=== PATIENT | female | born 1935 | race Caucasian/White ===

== ENCOUNTER → 2018-01-07 | Outpatient (CLI) | payer MEDICARE, OTHER ==
[~2018-01-07] MED LIST: ASPI81EC; ATOR10; AZIT250 PO; BUDE32NIS; CALCAVITDA; Coq-1030 MG PO; ESTR.75; ESTRTP; FISH1000 PO; FOLI1; FOLI400; HYDR1TAB94 PO; LOSA50 PO; MULVITMINF; OMEP20ER PO; PRAV20 PO; RABE20; SERT25; SERT25 PO; SERT50; TUDORZA PRESS400 MCG IH
[2018-01-07 13:58] LABS: Protein, Urine Random 18.4 mg/dL (0.0-11.9)
[2018-01-07 14:04] LABS: Bacteria Few /hpf; Red Blood Cells, Urine 0-2 /hpf (0-2); Squamous Epithelial Cells Rare /hpf (Few); White Blood Cells, Urine 0-2 /hpf (0-5)
[2018-01-07 14:05] LABS: Calcium Oxalate Crystals Mod /hpf
== END | disposition home or self-care (01) ==
LOC: LAB SHORT 11:23 → OLS 11:23
PROVIDERS: Internal Medicine
DX: R94.4 Abnormal results of kidney function studies (principal)
CPT/HCPCS: 81015; 82570; 84156

== ENCOUNTER 2018-08-20 05:43 | Inpatient (IN) | payer MEDICARE, OTHER ==
[~2018-08-20] VITALS: Ht 154.9 cm; Wt 75.5 kg
[~2018-08-20 05:43] MED LIST changes: +CENTRUM SILVER1 EAC2 PO; +CHOL10002 PO; +COQ1050 MG PO; +CYAN500 PO; +EZET10 PO; +FISH OIL + D31 EACH PO; +FISH OIL 1,0001 EAC1 PO; +Omeprazole20 M1 PO; +PERSERVISION BOTHEYES; +SERT50 PO; +TYLENOL PM PO; +Vitamin E200 UNIT PO; +WAL-ZAN 150150 MG PO
--- NOTE | 2018-08-20 06:47 | NUR ---
PT ADMITTED TO [facility]. AGREES WITH PLANNED SURGERY. LUNG SOUNDS CLEAR. NOSIN TO NARES BILATERLLY. MEDS, ALLERGIES AND HX REVIEWED.
--- NOTE | 2018-08-20 07:25 | NUR ---
PT TO BATHROOM TO VOID.
--- NOTE | 2018-08-20 11:55 | NUR ---
pt arrived to room 216 s/p l total hip pt has 3 bulky dressing cdi pt denies pain can wiggle toes but stated the hip is heavy pt denies nausea cl given will order reg diet pt daughter at bedside polar pack in place pt shaking warm blankets placed oriented to room layout
--- NOTE | 2018-08-20 15:41 | NUR ---
PT WORKING WITH PHYSICAL THERAPY AMB IN [facility]
--- NOTE | 2018-08-20 17:30 | NUR ---
PT EATING DINNER PT STATED THAT HER PAIN WAS 1-2/10
--- NOTE | 2018-08-20 18:27 | NUR ---
MEDS GIVEN SCHED PT ASSISTED TO BATHROOM TO VOID WANTS TO SIT UP IN CHAIR LONGER
[2018-08-21 04:08] LABS: BASOPHILS ABSOLUTE AUTO 0.01 K/mm3 (0.00-0.23); BASOPHILS PERCENT AUTO 0 % (0-2); EOSINOPHILS PERCENT AUTO 0 % (0-6); Hemoglobin 10.9 g/dL (11.5-16.0); IMMATURE GRAN ABSOLUTE AUTO 0.03 K/mm3 (0.00-0.10); IMMATURE GRAN PERCENT AUTO 0 % (0-1); LYMPHOCYTES ABSOLUTE AUTO 1.02 K/mm3 (0.84-5.20); LYMPHOCYTES PERCENT AUTO 8 % (21-46); MONOCYTES ABSOLUTE AUTO 1.34 K/mm3 (0.16-1.47); MONOCYTES PERCENT AUTO 11 % (4-13); Mean Corpuscular HGB 31.9 pg (26.0-34.0); Mean Corpuscular Volume 97 fL (80-100); Mean Platelet Volume 10.1 fL (9.1-12.4); NEUTROPHILS ABSOLUTE AUTO 9.92 K/mm3 (1.96-9.15); NEUTROPHILS PERCENT AUTO 81 % (41-73); Platelet Count 144 K/mm3 (150-400); RDW Coefficient Variation 11.8 % (11.7-14.2); RDW Standard Deviation 41.4 fL (35.1-46.3); Red Blood Cell Count 3.42 M/mm3 (3.80-5.20); White Blood Cell Count 12.32 K/mm3 (4.00-11.30)
[2018-08-21 04:24] LABS: Bun/Creatinine Ratio 23.4 (12.0-20.0); Calcium, Blood 8.4 mg/dL (8.5-10.1); Creatinine, Blood 1.07 mg/dL (0.40-1.00); Potassium, Blood 4.1 mmol/L (3.5-5.5)
--- NOTE | 2018-08-21 04:57 | NUR ---
SHIFT [facility] ASSUMED PT CARE AT 0045; REPORT RECEIVED FROM JERO,RN. PT A&O X4; POD#1 L ELIZABETH; DRESSINGS TO LLE CDI X3 SITES. PAIN MANGED PER EMAR. PT UP WITH FWW AND SBA. SCD'S AND GABRIELLA'S TO BLE'S. PPPX4; CALL LIGHT IN REACH; PT DEMONSTRATES USE. SIDE RAILS X3 FOR SAFETY. WCTM UNTIL REPORT TO DAY SHIFT RN.
--- NOTE | 2018-08-21 08:02 | NUR ---
pt declined breakfast stated she wants to rest stated she got up at 0300 with restless legs and was unable to fall back asleep at home she takes tylenol and lays back down pt wants to hold of on meds untill physical therapy comes or her daughter she said she might be in at 0900 pt denies pain at this time dressings cdi no bruising or swelling noted good strength
--- NOTE | 2018-08-21 08:55 | NUR ---
dr lui by to see pt dressing changed aqucel placed to hip upper and lower dressing removed and left off clean and dry pt oob in chair assisted to get dressed meds given as sched
[2018-08-21] MEDS ORDERED: HYDR1TAB94 PO (10:27)
[2018-08-21] MEDS ORDERED: ASPI325EC PO (10:28)
[2018-08-21] MEDS ORDERED: PROM25 PO (10:34)
--- NOTE | 2018-08-21 10:58 | NUR ---
discharge instructions reviewed with pt and daughter dressings given earlier no acute changes pt eval ok to discharge home no pain at this time rx filled by daughter yesterday but called in rx for bill mendez on catherine escort to car
== END 2018-08-21 11:00 | disposition home or self-care (01) | DRG 470 ==
LOC: SURS 05:43 → PRE IP 07:30 → SURS 11:56
PROVIDERS: ADMIT Orthopaedic Surgery
PROC: 8E0YXBZ Computer Assisted Procedure of Lower Extremity (ICD-10-PCS; 2018-08-20)
PROC: 0SRB04A Replacement of Left Hip Joint with Ceramic on Polyethylene Synthetic Substitute, Uncemented, Open Approach (ICD-10-PCS; principal; 2018-08-20 07:30)
DX: M16.12 Unilateral primary osteoarthritis, left hip (principal); K21.9 Gastro-esophageal reflux disease without esophagitis; N18.9 Chronic kidney disease, unspecified; J44.9 Chronic obstructive pulmonary disease, unspecified; E55.9 Vitamin D deficiency, unspecified; E78.00 Pure hypercholesterolemia, unspecified; I12.9 Hypertensive chronic kidney disease with stage 1 through stage 4 chronic kidney disease, or unspecified chronic kidney disease; F41.9 Anxiety disorder, unspecified; F32.9 Major depressive disorder, single episode, unspecified; G25.81 Restless legs syndrome; I27.20 Pulmonary hypertension, unspecified; Z88.5 Allergy status to narcotic agent; Z88.0 Allergy status to penicillin; Z88.8 Allergy status to other drugs, medicaments and biological substances; Z87.891 Personal history of nicotine dependence
CPT/HCPCS: 36415; 72170; 80048; 83735; 85025; 88300; 97110; 97116; 97162; 97530; C1713; C1776; J0171; J0735; J1100; J1885; J2795; J3370; J7120

== ENCOUNTER → 2018-09-25 | Outpatient (CLI) | payer MEDICARE, OTHER ==
[~2018-09-25] MED LIST changes: +ASPI325EC PO; +PROM25 PO
[2018-09-25 17:20] LABS: Adenovirus F 40/41 Not Detected (NOT DETECT); Astrovirus Not Detected (NOT DETECT); Campylobacter Sp Not Detected (NOT DETECT); Cryptosporidium Not Detected (NOT DETECT); Cyclospora Cayetanensis Not Detected (NOT DETECT); E. Coli O157 Not Detected (NOT DETECT); Entamoeba Histolytica Not Detected (NOT DETECT); Enteroaggregative E. coli-EAEC Not Detected (NOT DETECT); Enteropathogenic E. coli-EPEC Not Detected (NOT DETECT); Enterotoxigenic E. coli-ETEC Not Detected (NOT DETECT); Giardia Lamblia Not Detected (NOT DETECT); Norovirus GI/GII Not Detected (NOT DETECT); Plesiomonas Shigelloides Not Detected (NOT DETECT); Rotavirus A Not Detected (NOT DETECT); Salmonella Sp Not Detected (NOT DETECT); Sapovirus Not Detected (NOT DETECT); Shiga Toxin-prod E. coli-STEC Not Detected (NOT DETECT); Shigella/Enteroin E. coli-EIEC Not Detected (NOT DETECT); Vibrio Cholerae Not Detected (NOT DETECT); Vibrio Sp Not Detected (NOT DETECT); Yersinia Enterocolitica Not Detected (NOT DETECT)
== END | disposition home or self-care (01) ==
LOC: LAB EV 03:00
PROVIDERS: Family Medicine
DX: A07.8 Other specified protozoal intestinal diseases (principal)
CPT/HCPCS: 87324; 87507

== ENCOUNTER → 2019-09-21 | Outpatient (CLI) | payer MEDICARE, OTHER | END | disposition home or self-care (01) | LOC: PLD 11:44 → LAB SHORT 11:44 | DX: D22.5 Melanocytic nevi of trunk (principal) | CPT/HCPCS: 88305 ==

== ENCOUNTER → 2020-03-10 | Outpatient (CLI) | payer MEDICARE, OTHER | LOC: LAB SHORT 13:53 → LAB EV 13:53 | DX: N39.0 Urinary tract infection, site not specified (principal) | CPT/HCPCS: 87086 ==

== ENCOUNTER 2024-02-20 09:21 | Emergency (ER) | payer MEDICARE, OTHER ==
[~2024-02-20] VITALS: Ht 165.1 cm; Wt 72.6 kg
[2024-02-20] MEDS ORDERED: SERT50 PO (09:27)
[2024-02-20] MEDS ORDERED: ALBU3IS INH (09:27)
[2024-02-20] MEDS ORDERED: ACET325 PO (09:27)
[2024-02-20] MEDS ORDERED: GABA100 PO (09:28)
[2024-02-20] MEDS ORDERED: Acetaminophen 325 MG TABLET PO ONE (10:15)
[2024-02-20] MEDS ORDERED: OXYC5 PO (11:22)
[2024-02-20 13:05] VITALS: BP 146/66
== END 2024-02-20 13:25 | disposition home or self-care (01) ==
LOC: ER 09:21
DX: S72.92XA Unspecified fracture of left femur, initial encounter for closed fracture (principal); M97.02XA Periprosthetic fracture around internal prosthetic left hip joint, initial encounter; S39.012A Strain of muscle, fascia and tendon of lower back, initial encounter; W19.XXXA Unspecified fall, initial encounter; Z88.0 Allergy status to penicillin; Z88.5 Allergy status to narcotic agent; Z88.8 Allergy status to other drugs, medicaments and biological substances; Z79.899 Other long term (current) drug therapy
CPT/HCPCS: 72100; 73502; 99283-25; A9270

== ENCOUNTER 2024-02-25 09:38 | Inpatient (IN) | payer MEDICARE, OTHER ==
[~2024-02-25] VITALS: Ht 162.6 cm; Wt 63.5 kg
[~2024-02-25 09:38] MED LIST changes: +ACET325 PO; +ALBU3IS INH; +GABA100 PO; +OXYC5 PO
[2024-02-25] MEDS ORDERED: Acetaminophen 325 MG TABLET PO ONE (10:45)
[2024-02-25] MEDS ORDERED: Albuterol 2.5 MG/3 ML VIAL INH PRN (11:55)
[2024-02-25] MEDS ORDERED: OxyCODONE HCL 5 MG TAB PO PRN (11:55)
[2024-02-25] MEDS ORDERED: Acetaminophen 325 MG TABLET PO PRN (12:00)
[2024-02-25 12:26] LABS: BASOPHILS ABSOLUTE AUTO 0.03 K/mm3 (0.00-0.23); BASOPHILS PERCENT AUTO 0 % (0-2); EOSINOPHILS ABSOLUTE AUTO 0.19 K/mm3 (0.00-0.68); EOSINOPHILS PERCENT AUTO 3 % (0-6); Hematocrit 40.7 % (33.0-51.0); IMMATURE GRAN ABSOLUTE AUTO 0.02 K/mm3 (0.00-0.10); IMMATURE GRAN PERCENT AUTO 0 % (0-1); LYMPHOCYTES ABSOLUTE AUTO 1.04 K/mm3 (0.84-5.20); LYMPHOCYTES PERCENT AUTO 15 % (21-46); MONOCYTES ABSOLUTE AUTO 0.69 K/mm3 (0.16-1.47); MONOCYTES PERCENT AUTO 10 % (4-13); Mean Corpuscular HGB 32.3 pg (26.0-34.0); Mean Corpuscular HGB Conc 31.9 g/dL (31.5-36.5); Mean Corpuscular Volume 101 fL (80-100); Mean Platelet Volume 10.3 fL (9.1-12.4); NEUTROPHILS PERCENT AUTO 71 % (41-73); Platelet Count 136 K/mm3 (150-400); RDW Coefficient Variation 12.1 % (11.7-14.2); RDW Standard Deviation 45.7 fL (35.1-46.3); Red Blood Cell Count 4.02 M/mm3 (3.80-5.20); White Blood Cell Count 6.87 K/mm3 (4.00-11.30)
[2024-02-25 12:45] LABS: Albumin, Blood 3.2 g/dL (3.4-5.0); Albumin/Globulin Ratio 0.8 (0.8-1.8); Bilirubin, Total 0.6 mg/dL (0.1-1.0); Bun/Creatinine Ratio 32.3 (12.0-20.0); Calcium, Blood 9.4 mg/dL (8.5-10.1); Creatinine, Blood 0.87 mg/dL (0.40-1.00); Globulin, Blood 4.1 g/dL (2.2-4.0); Potassium, Blood 4.2 mmol/L (3.5-5.5); Total Protein, Blood 7.3 g/dL (6.4-8.2)
[2024-02-25 13:00] LABS: Source, Urine Fem Cath
[2024-02-25 13:11] LABS: Appearance, Urine Clear (Clear); Bilirubin, Urine Neg (Neg); Blood, Urine 2+ (Neg); Glucose Qualitative, Urine Neg (Neg); Ketones, Urine Neg (Neg); Leukocyte Esterase, Urine Neg (Neg); Nitrite, Urine Neg (Neg); Protein, Urine Neg (Neg); Specific Gravity, Urine 1.015 (1.003-1.022); Urobilinogen, Urine NORM (Normal)
[2024-02-25 13:31] LABS: Color, Urine Pale Yellow (P-Yellow)
[2024-02-25 13:33] VITALS: BP 168/83
[2024-02-25 13:33] LABS: Bacteria Rare /hpf; Red Blood Cells, Urine 0-2 /hpf (0-2); Squamous Epithelial Cells Rare /hpf (Few); White Blood Cells, Urine 0-2 /hpf (0-5)
[2024-02-25] MEDS ORDERED: CENTRUM SILVER1 EAC2 PO (13:45)
[2024-02-25] MEDS ORDERED: FISH OIL 1,4001 EAC2 PO (13:45)
[2024-02-25] MEDS ORDERED: B-12500 MC2 PO (13:46)
[2024-02-25] MEDS ORDERED: THERA-D2000 UNIT PO (13:46)
[2024-02-25] MEDS ORDERED: TOCO1000 PO (13:47)
[2024-02-25] MEDS ORDERED: PRESERVISION A1 EAC1 PO (13:47)
[2024-02-25] MEDS ORDERED: ALBU90OI INH (13:48)
[2024-02-25] MEDS ORDERED: GABA100 PO (13:50)
[2024-02-25] MEDS ORDERED: Gabapentin 100 MG Cap PO SCH (14:00)
--- NOTE | 2024-02-25 18:22 | NUR ---
SHIFT SUMMARY; PATIENT ARRIVED TO MED FLOOR FROM ER EARLY THIS AFTERNOON. ON ARRIVAL SHE IS ORIENTED TO PERSON AND PLACE BUT NOT TIME OR EVENT. SHE WAS ADMITTED AFTER HAVING A GLF FALL ON February AND NOT BEING ABLE TO MANAGE AT HOME. PLAN IS FOR PATIENT TO HAVE 3 DAYS STAY AND THEN TRANSFER TO SNF FOR REHAB. HER VITAL SIGNS ARE STABLE AND NO SKIN ISSUES NOTED OTHER THAN BRUISE IN VARIOIUS STAGES OF HEALING TO LEFT HIP. VITAL SIGNS ARE STABLE AND PATIENT DENIES NEEDS FOR ANY PAIN MEDICATIONS AT THIS TIIME.
[2024-02-25 19:37] VITALS: BP 137/71
[2024-02-26 03:57] VITALS: BP 182/78
--- NOTE | 2024-02-26 05:30 | NUR ---
PRINT PRODUCTION ASSOCIATE SUMMARY BP ELEVATED OTHERWISE VSS. (HX OF BP ELEVATED - SEE DOC FLOW SHEETS). ASYMPTOMATIC. ALERT TO QUESTIONS ASKED. DENIED DISCOMFORT WHEN ASKED. REMAIN S BEDREST DUE TO HIP FX. ABLE TO REPOSITION SELF IN BED WITH LITTLE ASSIST. HAS BEEN RSTING QUIETLY WITH FEW INTERRUPTIONS. PUREWICK IN USE. CONT OF BOWEL WITH BEDPAN. BED ALARM ON. NO ATTEMPTS TO GET OOB WITHOUT ASSIST. RAILS UP X 2, CALL LIGHT IN REACH AND BED IN LOW POSITION FOR SAFETY. WILL CONT TO MONITOR
[2024-02-26 07:39] VITALS: BP 161/90
[2024-02-26] MEDS ORDERED: Enoxaparin 40 MG/0.4 ML SYR SC SCH (09:00)
[2024-02-26] MEDS ORDERED: Sertraline HCl 50 MG Tab PO SCH ×3 (09:00→21:00)
[2024-02-26] MEDS ORDERED: Acetaminophen 500MG/DP-Hydram 25MG HCL 1 Tab PO PRN (10:05)
--- NOTE | 2024-02-26 10:57 | NUR ---
dr presley lacy, daughter present on the phone. PT in working with patient, medicated with tylenol, daughter present on the phone
[2024-02-26] MEDS ORDERED: Gabapentin 100 MG Cap PO SCH ×2 (11:00→21:00)
[2024-02-26 16:28] VITALS: BP 135/89
--- NOTE | 2024-02-26 18:14 | NUR ---
NO ACUTE CHANGES, [place], FORGETFUL AT TIMES, CLEARLY MAKES NEEDS KNOWN, MEDICATED FOR PAIN PRIOR TO WORKING WITH PT/OT, PATIENT DENIED NEED FOR PAIN MEDICATION, PATIENT HELPS TO REPOSITION, PATIENT DENEIS THE NEED FOR NARCOTICS AND ONLY WANTS TYLENOL, THOM HOUSING ASSISTANT WORKING WITH PATIENT AND DAUGHTER FOR POSSIBLE SNF PLACEMENT, CALL LIGHT WITH IN REACH, WILL RELAY TO PM MARGO
[2024-02-26 19:56] VITALS: BP 164/90
--- NOTE | 2024-02-27 04:28 | NUR ---
SHIFT SUMMARY: Pt is admitted for left hip FX and is a DNR. is alert and able to make needs known. ADLs have been 2p but did not get out of bed during shift. Say that pain is manageable and does not need anything when asked. Powerglide to upper right arm is intact with a dressing that is CDI.
[2024-02-27 05:46] VITALS: BP 151/86
[2024-02-27 07:00] VITALS: BP 141/108
[2024-02-27] MEDS ORDERED: Cholecalciferol 1000 Unit Tablet (=25MCG) PO SCH (09:00)
[2024-02-27] MEDS ORDERED: Cyanocobalamin 500 MCG Tab PO SCH (09:00)
[2024-02-27] MEDS ORDERED: PRESERVISION AREDS PO SCH (09:00)
[2024-02-27] MEDS ORDERED: Vitamin E 400 Intn'l Units Cap PO SCH (09:00)
[2024-02-27] MEDS ORDERED: Gabapentin 100 MG Cap PO SCH (09:00)
[2024-02-27] MEDS ORDERED: Docosahexanoic Acid/EPA 1,000 MG CAP PO SCH (09:00)
[2024-02-27] MEDS ORDERED: Multivitamins/Minerals 1 Tab PO SCH (09:00)
[2024-02-27 15:16] VITALS: BP 198/97
[2024-02-27] MEDS ORDERED: HydrALAZINE HCl 20 MG / ML 1ML Vial IV PRN (15:55)
[2024-02-27] MEDS ORDERED: Lisinopril 5 MG Tab PO SCH (16:00)
[2024-02-27 16:43] VITALS: BP 117/74
--- NOTE | 2024-02-27 18:29 | NUR ---
SUMMARY- PT A/O X3, FORGETFUL TO DETAILS. PHYSICAL THERAPY WORKED WITH PT TODAY. PT GOT UP AND SAT IN THE CHAIR FOR A FEW HOURS DURING LUNCH. 1 SBA WALKER, SLOW, ADQ STRENGTH. L HIP PAIN IS MINIMAL, TYLENOL SUFFICIENT TO RELEIVE PAIN. 1530 PT'S BP ELEVATED 198/98, CHEECKS FLUSHED, PT WAS SLEEPY AFTER A NAP. CALLED DR CARDENAS TO NOTIFY HIM PF ELEVATED BP. NEW ORDER FOR ZESTRIL. RECHECKED PT'S BLOOD PRESURE AN HOUR LATER IN THE CHAIR AND IT HAD COME DOWN SIGNIFFICANTLY TO SBP 110'S. DAUGETER STATES PT'S BP IS VERY LABILE AND DECLINED ZESTRIL. ALSO OF NOTE, AFTER PT WAS TRANSFERRED TO CHAIR, SHE BECAME GLAZED OVER AND MINIMALLY RESPONSIVE, ASKED QUESTIONS WITH HARDLY ANY VERBAL RESPONSE. WITHIN MINUTES SHE CAME TO SIGNIFICANTLY MORE ALERT AND INTERACTIVE, CLEAR AND VERBAL. DAUGHTER STATES SHE HAS BEEN DOING THIS ON/OFF FOR THE PAST FEW MONTHS. CALLED DR CARDENAS AGAIN AT 181 AND LEFT MESSAGE THAT LISINOPRIL REFUSED AND ABOUT BREIF MENTAL CHANGE
[2024-02-27 19:22] VITALS: BP 113/58
[2024-02-28 02:42] VITALS: BP 140/66
[2024-02-28 05:09] LABS: BASOPHILS ABSOLUTE AUTO 0.04 K/mm3 (0.00-0.23); BASOPHILS PERCENT AUTO 1 % (0-2); EOSINOPHILS ABSOLUTE AUTO 0.24 K/mm3 (0.00-0.68); EOSINOPHILS PERCENT AUTO 5 % (0-6); Hematocrit 36.4 % (33.0-51.0); Hemoglobin 11.6 g/dL (11.5-16.0); IMMATURE GRAN ABSOLUTE AUTO 0.02 K/mm3 (0.00-0.10); IMMATURE GRAN PERCENT AUTO 0 % (0-1); LYMPHOCYTES ABSOLUTE AUTO 1.45 K/mm3 (0.84-5.20); LYMPHOCYTES PERCENT AUTO 29 % (21-46); MONOCYTES ABSOLUTE AUTO 0.62 K/mm3 (0.16-1.47); MONOCYTES PERCENT AUTO 12 % (4-13); Mean Corpuscular HGB 32.2 pg (26.0-34.0); Mean Corpuscular HGB Conc 31.9 g/dL (31.5-36.5); Mean Corpuscular Volume 101 fL (80-100); Mean Platelet Volume 9.9 fL (9.1-12.4); NEUTROPHILS ABSOLUTE AUTO 2.72 K/mm3 (1.96-9.15); NEUTROPHILS PERCENT AUTO 53 % (41-73); Platelet Count 181 K/mm3 (150-400); RDW Standard Deviation 45.5 fL (35.1-46.3); White Blood Cell Count 5.09 K/mm3 (4.00-11.30)
[2024-02-28 05:48] LABS: Bun/Creatinine Ratio 23.6 (12.0-20.0); Calcium, Blood 9.1 mg/dL (8.5-10.1); Creatinine, Blood 0.89 mg/dL (0.40-1.00); Potassium, Blood 3.9 mmol/L (3.5-5.5)
[2024-02-28 07:35] VITALS: BP 136/78
[2024-02-28 09:02] VITALS: BP 146/130
[2024-02-28 09:08] VITALS: BP 116/69
[2024-02-28 17:04] VITALS: BP 178/88
--- NOTE | 2024-02-28 18:17 | NUR ---
SHIFT SUMMARY PT A&OX4, AMB W/ SBA-1P ASSIST, TOLERATING PO, INCONTINENT VOIDS, AND PAIN MANAGED PER EMAR. PT HYPERTENSIVE X1 THIS SHIFT AND MEDICATED PER THE EMAR. PT WORKED W/ PHYSICAL THERAPY AND TOLERATED IT WELL, SEE THERAPY NOTE. NO ACUTE CHANGES. CALL LIGHT WITHIN REACH AND PT ABLE TO MAKE NEEDS KNOWN.
[2024-02-28 19:42] VITALS: BP 116/66
[2024-02-29 06:13] VITALS: BP 164/86
[2024-02-29 06:38] LABS: BASOPHILS ABSOLUTE AUTO 0.04 K/mm3 (0.00-0.23); BASOPHILS PERCENT AUTO 1 % (0-2); EOSINOPHILS ABSOLUTE AUTO 0.25 K/mm3 (0.00-0.68); EOSINOPHILS PERCENT AUTO 5 % (0-6); Hematocrit 35.9 % (33.0-51.0); Hemoglobin 11.8 g/dL (11.5-16.0); IMMATURE GRAN ABSOLUTE AUTO 0.02 K/mm3 (0.00-0.10); IMMATURE GRAN PERCENT AUTO 0 % (0-1); LYMPHOCYTES ABSOLUTE AUTO 1.22 K/mm3 (0.84-5.20); LYMPHOCYTES PERCENT AUTO 24 % (21-46); MONOCYTES ABSOLUTE AUTO 0.63 K/mm3 (0.16-1.47); MONOCYTES PERCENT AUTO 12 % (4-13); Mean Corpuscular HGB 32.5 pg (26.0-34.0); Mean Corpuscular HGB Conc 32.9 g/dL (31.5-36.5); Mean Corpuscular Volume 99 fL (80-100); Mean Platelet Volume 9.5 fL (9.1-12.4); NEUTROPHILS ABSOLUTE AUTO 2.96 K/mm3 (1.96-9.15); NEUTROPHILS PERCENT AUTO 58 % (41-73); Platelet Count 208 K/mm3 (150-400); RDW Coefficient Variation 12.3 % (11.7-14.2); RDW Standard Deviation 44.6 fL (35.1-46.3); Red Blood Cell Count 3.63 M/mm3 (3.80-5.20); White Blood Cell Count 5.12 K/mm3 (4.00-11.30)
[2024-02-29 07:01] LABS: Creatinine, Blood 0.87 mg/dL (0.40-1.00); Potassium, Blood 4.2 mmol/L (3.5-5.5)
[2024-02-29 07:48] VITALS: BP 164/87
[2024-02-29] MEDS ORDERED: OXAYDO5 M1 PO (12:56)
--- NOTE | 2024-02-29 15:41 | NUR ---
DISCHARGE NOTE PT DISCHARGED HOME AT 1540. PT PROVIDED W/ VERBAL AND WRITTEN INSTRUCTIONS AND REPORTED UNDERSTANDING. PT A&OX4, VSS, AMB W/ 1P ASSIST AND FWW, TOLERATING PO, VOIDING, AND DENIED PAIN. BELONGINGS WERE RETURNED AND HARD SCRIPT PLACED IN DISCHARGE PACKET. PT ESCOURTED OUT VIA W/C BY [facility].
== END 2024-02-29 15:50 | disposition home health service (06) | DRG 536 ==
LOC: ER 09:38 → MEDS 11:48
PROVIDERS: ADMIT Internal Medicine
DX: S72.115A Nondisplaced fracture of greater trochanter of left femur, initial encounter for closed fracture (principal); M97.02XA Periprosthetic fracture around internal prosthetic left hip joint, initial encounter; I50.32 Chronic diastolic (congestive) heart failure; I13.0 Hypertensive heart and chronic kidney disease with heart failure and stage 1 through stage 4 chronic kidney disease, or unspecified chronic kidney disease; W18.30XA Fall on same level, unspecified, initial encounter; Z96.642 Presence of left artificial hip joint; M54.16 Radiculopathy, lumbar region; Z66 Do not resuscitate; I95.1 Orthostatic hypotension; K21.9 Gastro-esophageal reflux disease without esophagitis; N18.32 Chronic kidney disease, stage 3b; F41.9 Anxiety disorder, unspecified; E78.5 Hyperlipidemia, unspecified; J44.9 Chronic obstructive pulmonary disease, unspecified; E55.9 Vitamin D deficiency, unspecified; E78.00 Pure hypercholesterolemia, unspecified; F32.A Depression, unspecified; G25.81 Restless legs syndrome; H91.90 Unspecified hearing loss, unspecified ear; M19.90 Unspecified osteoarthritis, unspecified site; H26.9 Unspecified cataract; Z87.81 Personal history of (healed) traumatic fracture; Z87.01 Personal history of pneumonia (recurrent); Z79.899 Other long term (current) drug therapy; Z88.0 Allergy status to penicillin; Z88.8 Allergy status to other drugs, medicaments and biological substances; Z88.5 Allergy status to narcotic agent; Z79.891 Long term (current) use of opiate analgesic; Z98.890 Other specified postprocedural states; Z90.710 Acquired absence of both cervix and uterus; Z90.49 Acquired absence of other specified parts of digestive tract; Z87.891 Personal history of nicotine dependence; Z90.721 Acquired absence of ovaries, unilateral
CPT/HCPCS: 36415; 51798; 70551; 73502; 80048; 80053; 81001; 85025; 94760; 97110; 97116; 97162; 97167; 97530; 97535; 99284; A9270; C1751; J0360; J1650; P9612